=== PATIENT | female | born 1950 | race Caucasian/White ===

== ENCOUNTER → 2016-12-01 | Outpatient (CLI) | payer OTHER ==
[~2016-12-01] MED LIST: DICLOFENAC POTA50 MG PO; IRON325 M1 PO; LASIX20 MG PO; LORAZEPAM0.5 MG PO; PAROXETINE CR37.5 MG PO; PAXIL CR25 MG PO; PRAVASTATIN SOD80 MG PO; PROMETHAZINE HC25 M1 PO; RANITIDINE HCL150 MG PO; REQUIP2 MG PO
== END | disposition home or self-care (01) ==
DX: R26.2 Difficulty in walking, not elsewhere classified (principal); M25.561 Pain in right knee; M25.661 Stiffness of right knee, not elsewhere classified; M62.81 Muscle weakness (generalized)
CPT/HCPCS: 97110 GP; 97150 GO; 97161 GP; 97165 GO; G8978 GP; G8979 GP; G8980 GP; G8987 GO; G8988 GO; G8989 GO

== ENCOUNTER 2016-12-07 08:24 | Inpatient (IN) | payer OTHER ==
[~2016-12-07] VITALS: Ht 167.6 cm; Wt 103.0 kg
[2016-12-07 13:03] LABS: POINT-OF-CARE METER ID UU14174212
[2016-12-07 13:04] VITALS: BP 164/88
[2016-12-07 21:52] VITALS: BP 141/68
[2016-12-07 23:17] VITALS: BP 141/68
[2016-12-08 05:13] VITALS: BP 133/72
[2016-12-08 07:20] LABS: HEMATOCRIT 39.4 % (36.0-46.0); MCV 88.9 FL (83-99)
[2016-12-08 07:43] LABS: ANION GAP 9 MEQ/L (2-14); CHLORIDE 105 MEQ/L (99-109); GFR ESTIMATE (CALCULATED) > 59 mL/min/; GLUCOSE 173 mg/dL (70-99); POTASSIUM 4.4 MEQ/L (3.7-5.4); SAMPLE HEMOLYSIS CHECK 0; SAMPLE ICTERIC CHECK 0; SAMPLE LIPEMIA CHECK 0; SODIUM 139 MEQ/L (136-147); UREA NITROGEN (BUN) 10 mg/dL (9-23)
[2016-12-08 07:49] LABS: INTER. NORMALIZED RATIO 1.1; PROTHROMBIN TIME 10.7 (9.2-11.2)
[2016-12-08 08:09] VITALS: BP 142/70
[2016-12-08 12:00] VITALS: BP 121/56
[2016-12-08 16:00] VITALS: BP 131/63
[2016-12-08 20:13] VITALS: BP 118/63
[2016-12-09 00:13] VITALS: BP 137/65
[2016-12-09 07:34] LABS: HEMATOCRIT 36.1 % (36.0-46.0); MCV 87.6 FL (83-99)
[2016-12-09 07:39] LABS: INTER. NORMALIZED RATIO 1.2; PROTHROMBIN TIME 12.5 (9.2-11.2)
[2016-12-09 07:59] VITALS: BP 148/72
[2016-12-09 16:05] VITALS: BP 148/76
[2016-12-09 23:42] VITALS: BP 124/79
[2016-12-10 07:21] LABS: INTER. NORMALIZED RATIO 1.3; PROTHROMBIN TIME 13.6 (9.2-11.2)
[2016-12-10] MEDS ORDERED: SENNA PLUS TAB1 EACH PO (07:48)
[2016-12-10] MEDS ORDERED: COUMADIN2.5 MG PO (07:49)
[2016-12-10] MEDS ORDERED: ENDOCET 5-3251 EACH PO (07:49)
[2016-12-10 08:00] VITALS: BP 121/75
[2016-12-10 13:41] LABS: BASE EXCESS 5.7 mEq/L (-3 to +3); BICARBONATE 31.1 mEq/L (22-26); CARBOXY HGB 1.9 % (0-5); COMMENTS - BLOOD GASES A+C+; DEVICE NC; METHEMOGLOBIN 1.4 % (0-1.5); O2 FLOW 2 L/MIN; PCO2 48 mm Hg (35-45); PO2 68 mm Hg (80-100); SITE RR; pH 7.42 (7.35-7.45)
[2016-12-10 14:25] LABS: D-DIMER ELISA 2.09 mg/L FEU (< 0.57)
[2016-12-10 14:43] LABS: BASE EXCESS 6.1 mEq/L (-3 to +3); BICARBONATE 31.2 mEq/L (22-26); COMMENTS - BLOOD GASES A+C+; METHEMOGLOBIN 1.8 % (0-1.5); PCO2 46 mm Hg (35-45); PO2 49 mm Hg (80-100); SITE RR; pH 7.44 (7.35-7.45)
[2016-12-10 14:44] LABS: DEVICE ROOM AIR; FI02 21 %
[2016-12-10 16:00] VITALS: BP 150/74
[2016-12-10 18:22] LABS: MCH 27.9 PG (29.0-34.0); MCHC 31.8 G/DL (30.0-36.0); MCV 87.6 FL (83-99); MEAN PLAT.VOLUME 10.8 uM^3 (9.5-12.4); PLATELET COUNT 202 K/uL (156-360); RBC DIS.WIDTH-CV 13.8 % (11.8-14.6); RBC DIS.WIDTH-SD 44.6 % (39-53); RED BLOOD COUNT 4.34 M/uL (3.80-5.20); WHITE BLOOD COUNT 9.6 K/uL (4.1-10.2)
[2016-12-10 23:50] VITALS: BP 141/70
[2016-12-11 04:46] LABS: INTER. NORMALIZED RATIO 1.6; PROTHROMBIN TIME 16.5 (9.2-11.2)
[2016-12-11 08:12] VITALS: BP 145/69
[2016-12-11 16:25] VITALS: BP 122/68
[2016-12-11 17:00] LABS: INTER. NORMALIZED RATIO 1.8; PROTHROMBIN TIME 18.8 (9.2-11.2); PTT 54.1 (25-32)
[2016-12-12 00:14] VITALS: BP 108/68
[2016-12-12 07:45] VITALS: BP 132/74
[2016-12-12 08:47] LABS: INTER. NORMALIZED RATIO 2.1; PROTHROMBIN TIME 21.7 (9.2-11.2); PTT 58.3 (25-32)
[2016-12-12 15:52] VITALS: BP 139/68
[2016-12-12 23:22] VITALS: BP 135/68
[2016-12-13 07:11] LABS: INTER. NORMALIZED RATIO 2.8; PROTHROMBIN TIME 29.3 (9.2-11.2); PTT 41.5 (25-32)
[2016-12-13 08:05] VITALS: BP 164/80
== END 2016-12-13 13:55 | DRG 470 ==
LOC: 2SOUTH 08:24 → 3EAST 21:39
PROVIDERS: Internal Medicine Pulmonary Disease; Orthopaedic Surgery
PROC: 0SRC0J9 Replacement of Right Knee Joint with Synthetic Substitute, Cemented, Open Approach (ICD-10-PCS; principal; 2016-12-07)
DX: M17.11 Unilateral primary osteoarthritis, right knee (principal); I26.99 Other pulmonary embolism without acute cor pulmonale; E11.9 Type 2 diabetes mellitus without complications; E78.5 Hyperlipidemia, unspecified; K21.9 Gastro-esophageal reflux disease without esophagitis; R09.02 Hypoxemia; Z96.652 Presence of left artificial knee joint; R11.2 Nausea with vomiting, unspecified
CPT/HCPCS: 36600; 71010; 71275; 76937; 80048; 82803; 82948; 85014; 85018; 85027; 85379; 85610; 85730; 93970; 94799; 97530 GO; C1713; C1753; J0690; J1170; J1885; J2250; J7050; J7120